=== PATIENT | male | born 1945 | race Caucasian/White ===

== ENCOUNTER → 2021-03-03 | Outpatient (CLI) | payer MEDICARE, BC ==
[~2021-03-03] MED LIST: AMLO10 PO; ASPI81EC PO; OMEP20ER PO; Prilosec Otc20 MG PO; SUCR1 PO
[2021-03-10 12:08] LABS: M-SPIKE, % Not Observed % (Not Observed); PROTEIN,TOTAL,URINE 4.6 mg/dL (Not Estab.)
== END ==
LOC: LAB SHORT 14:42 → LAB 14:42 → LAB FUT 02-04 16:50
PROVIDERS: Internal Medicine
DX: R79.89 Other specified abnormal findings of blood chemistry (principal)
CPT/HCPCS: 81050; 84166

== ENCOUNTER → 2021-06-17 | Outpatient (CLI) | payer MEDICARE ==
[2021-06-17 10:48] LABS: BASOPHILS ABSOLUTE AUTO 0.04 K/mm3 (0.00-0.23); BASOPHILS PERCENT AUTO 1 % (0-2); EOSINOPHILS ABSOLUTE AUTO 0.47 K/mm3 (0.00-0.68); EOSINOPHILS PERCENT AUTO 10 % (0-6); Hematocrit 38.6 % (37.0-53.0); Hemoglobin 12.9 g/dL (13.5-17.5); IMMATURE GRAN ABSOLUTE AUTO 0.01 K/mm3 (0.00-0.10); IMMATURE GRAN PERCENT AUTO 0 % (0-1); LYMPHOCYTES ABSOLUTE AUTO 1.02 K/mm3 (0.84-5.20); LYMPHOCYTES PERCENT AUTO 21 % (21-46); MONOCYTES ABSOLUTE AUTO 0.74 K/mm3 (0.16-1.47); MONOCYTES PERCENT AUTO 15 % (4-13); Mean Corpuscular HGB 31.5 pg (26.0-34.0); Mean Corpuscular HGB Conc 33.4 g/dL (31.5-36.5); Mean Corpuscular Volume 94 fL (80-100); NEUTROPHILS ABSOLUTE AUTO 2.69 K/mm3 (1.96-9.15); NEUTROPHILS PERCENT AUTO 54 % (41-73); Platelet Count 213 K/mm3 (150-400); RDW Coefficient Variation 13.7 % (11.7-14.2); RDW Standard Deviation 46.3 fL (35.1-46.3); White Blood Cell Count 4.97 K/mm3 (4.00-11.30)
[2021-06-17 11:07] LABS: Alanine Aminotransfer (ALT/SGP 20 U/L (12-78); Albumin, Blood 3.1 g/dL (3.4-5.0); Albumin/Globulin Ratio 0.6 (0.8-1.8); Alk Phos 90 U/L (40-126); Anion Gap 10 mmol/L (6-16); Aspartate Aminotrans (AST/SGOT 21 U/L (12-37); Bilirubin, Total 0.6 mg/dL (0.1-1.0); Blood Urea Nitrogen 12 mg/dL (8-24); Bun/Creatinine Ratio 10.8 (12.0-20.0); CO2, Blood 27 mmol/L (21-32); Calcium, Blood 9.4 mg/dL (8.5-10.1); Chloride, Blood 106 mmol/L (98-108); Creatinine, Blood 1.11 mg/dL (0.60-1.20); Globulin, Blood 5.3 g/dL (2.2-4.0); Glomerular Filtration Rate >60 (60-); Glucose, Blood 104 mg/dL (70-99); Potassium, Blood 4.2 mmol/L (3.5-5.5); Sodium, Blood 143 mmol/L (136-145); Thyroid Stimulating Hormone 1.908 uIU/mL (0.360-4.800); Total Protein, Blood 8.4 g/dL (6.4-8.2)
[2021-06-17 11:10] LABS: Troponin I <0.017 ng/mL (0.000-0.040)
== END | disposition home or self-care (01) ==
LOC: LAB SHORT 10:40
PROVIDERS: Physician Assistant
DX: R07.9 Chest pain, unspecified (principal); R53.83 Other fatigue
CPT/HCPCS: 80053; 84443; 84484; 85025; 85379

== ENCOUNTER → 2021-08-18 | Outpatient (CLI) | payer MEDICARE, OTHER ==
[2021-08-19 09:58] LABS: Stool Occult Bld Immuno 1 Negative (NEGATIVE); Stool Occult Bld Immuno 2 Negative (NEGATIVE); Stool Occult Bld Immuno 3 Negative (NEGATIVE)
== END | disposition home or self-care (01) ==
LOC: LAB SHORT 11:26 → EDSTATUS 08-15 18:05 → LAB FUT 08-15 18:05
PROVIDERS: Family Medicine
DX: D50.9 Iron deficiency anemia, unspecified (principal)
CPT/HCPCS: 82274

== ENCOUNTER 2021-10-17 19:46 | Inpatient (IN) | payer MEDICARE, OTHER ==
[~2021-10-17] VITALS: Ht 180.3 cm; Wt 102.0 kg
[2021-10-17 20:33] LABS: BASOPHILS ABSOLUTE AUTO 0.01 K/mm3 (0.00-0.23); BASOPHILS PERCENT AUTO 0 % (0-2); EOSINOPHILS ABSOLUTE AUTO 0.03 K/mm3 (0.00-0.68); EOSINOPHILS PERCENT AUTO 0 % (0-6); Hematocrit 40.2 % (37.0-53.0); Hemoglobin 11.4 g/dL (13.5-17.5); IMMATURE GRAN ABSOLUTE AUTO 0.07 K/mm3 (0.00-0.10); IMMATURE GRAN PERCENT AUTO 1 % (0-1); LYMPHOCYTES ABSOLUTE AUTO 1.09 K/mm3 (0.84-5.20); LYMPHOCYTES PERCENT AUTO 14 % (21-46); MONOCYTES ABSOLUTE AUTO 0.58 K/mm3 (0.16-1.47); MONOCYTES PERCENT AUTO 8 % (4-13); Mean Corpuscular HGB Conc 28.4 g/dL (31.5-36.5); Mean Corpuscular Volume 88 fL (80-100); NEUTROPHILS ABSOLUTE AUTO 5.93 K/mm3 (1.96-9.15); NEUTROPHILS PERCENT AUTO 77 % (41-73); NRBC ABSOLUTE 0.25 K/mm3 (0.00-0.02); NRBC Auto 3.2 /100 WBC (0.0-0.2); Platelet Count 69 K/mm3 (150-400); RDW Coefficient Variation 23.6 % (11.7-14.2); Red Blood Cell Count 4.56 M/mm3 (4.30-5.90); White Blood Cell Count 7.71 K/mm3 (4.00-11.30)
[2021-10-17 20:43] LABS: Alanine Aminotransfer (ALT/SGP 73 U/L (12-78); Albumin, Blood 1.8 g/dL (3.4-5.0); Albumin/Globulin Ratio 0.4 (0.8-1.8); Alk Phos 301 U/L (50-136); Anion Gap 7 mmol/L (6-16); Aspartate Aminotrans (AST/SGOT 184 U/L (12-37); Bilirubin, Total 2.4 mg/dL (0.1-1.0); Blood Urea Nitrogen 25 mg/dL (8-24); Bun/Creatinine Ratio 27.1 (12.0-20.0); CO2, Blood 24 mmol/L (21-32); Chloride, Blood 109 mmol/L (98-108); Creatinine, Blood 0.92 mg/dL (0.60-1.20); Glomerular Filtration Rate >60 (60-); Glucose, Blood 92 mg/dL (70-99); Potassium, Blood 4.3 mmol/L (3.5-5.5); Sodium, Blood 140 mmol/L (136-145); Total Protein, Blood 6.8 g/dL (6.4-8.2)
[2021-10-17] MEDS ORDERED: INLYTA5 MG PO (21:07)
[2021-10-17 23:44] LABS: Influenza A, PCR NEGATIVE (NEGATIVE); Influenza B, PCR NEGATIVE (NEGATIVE); Resp Syncytial Virus, PCR NEGATIVE (NEGATIVE); SARS-Cov-2 (COVID-19) PCR, MMC NEGATIVE (NEGATIVE)
--- NOTE | 2021-10-18 01:49 | NUR ---
ADMIT NOTE 76 YR OLD MALE ADMIT TO FLOOR F/ED W/DX HYPOXIA AND DEHYRATION. NOTE SEVERE EDEMA TO BLE 4+. CURRENTLY ON LASIX AND CHEMO DRUGS; SEE MAR FOR DETAILS. A/OX4. ORIENTED TO CALL LIGHT. CALL LIGHT IN REACH. OCCASIONAL COUGH NOTED.
--- NOTE | 2021-10-18 05:14 | NUR ---
REPAIRER CONTROLLER TESTER SUMMARY WAS ADMITTED EARLIER IN THE SHIFT WITH DX HYPOXIA AND DEHYDRATION. BLE EDEMA 4+. ALBUMIN AND LASIX ADMINISTERED PER MD ORDERS - SEE MAR FOR DETAILS. HAS BEEN UP TO THE COMMODE SEVERAL TIMES TO VOID. NOTE DECREASED EDEMA IN BLE. ORIENTED X 4. CALL LIGHT IN REACH. VOICED FEELING BETTER, BUT STIL ANNOYED WITH THE MULTIPLE TRIPS TO THE COMMODE. WATCHING TV AT THIS TIME.
[2021-10-18 06:15] LABS: BASOPHILS ABSOLUTE AUTO 0.01 K/mm3 (0.00-0.23); BASOPHILS PERCENT AUTO 0 % (0-2); EOSINOPHILS ABSOLUTE AUTO 0.01 K/mm3 (0.00-0.68); EOSINOPHILS PERCENT AUTO 0 % (0-6); Hematocrit 36.7 % (37.0-53.0); Hemoglobin 10.6 g/dL (13.5-17.5); IMMATURE GRAN ABSOLUTE AUTO 0.06 K/mm3 (0.00-0.10); IMMATURE GRAN PERCENT AUTO 1 % (0-1); LYMPHOCYTES ABSOLUTE AUTO 0.92 K/mm3 (0.84-5.20); LYMPHOCYTES PERCENT AUTO 14 % (21-46); MONOCYTES ABSOLUTE AUTO 0.61 K/mm3 (0.16-1.47); MONOCYTES PERCENT AUTO 9 % (4-13); Mean Corpuscular HGB 25.1 pg (26.0-34.0); Mean Corpuscular HGB Conc 28.9 g/dL (31.5-36.5); Mean Corpuscular Volume 87 fL (80-100); Mean Platelet Volume 11.2 fL (9.1-12.4); NEUTROPHILS ABSOLUTE AUTO 5.21 K/mm3 (1.96-9.15); NEUTROPHILS PERCENT AUTO 77 % (41-73); NRBC ABSOLUTE 0.16 K/mm3 (0.00-0.02); NRBC Auto 2.3 /100 WBC (0.0-0.2); Platelet Count 52 K/mm3 (150-400); RDW Coefficient Variation 23.3 % (11.7-14.2); RDW Standard Deviation 71.4 fL (35.1-46.3); Red Blood Cell Count 4.23 M/mm3 (4.30-5.90); White Blood Cell Count 6.82 K/mm3 (4.00-11.30)
[2021-10-18 06:59] LABS: Alanine Aminotransfer (ALT/SGP 67 U/L (12-78); Albumin/Globulin Ratio 0.5 (0.8-1.8); Alk Phos 281 U/L (50-136); Anion Gap 8 mmol/L (6-16); Aspartate Aminotrans (AST/SGOT 208 U/L (12-37); Bilirubin, Total 3.2 mg/dL (0.1-1.0); Blood Urea Nitrogen 26 mg/dL (8-24); CO2, Blood 25 mmol/L (21-32); Calcium, Blood 8.6 mg/dL (8.5-10.1); Chloride, Blood 107 mmol/L (98-108); Creatinine, Blood 0.96 mg/dL (0.60-1.20); Globulin, Blood 4.4 g/dL (2.2-4.0); Glomerular Filtration Rate >60 (60-); Glucose, Blood 88 mg/dL (70-99); Potassium, Blood 3.6 mmol/L (3.5-5.5); Sodium, Blood 140 mmol/L (136-145); Total Protein, Blood 6.4 g/dL (6.4-8.2)
[2021-10-18 08:01] LABS: Source, Urine Clean Catch
[2021-10-18 08:28] LABS: Appearance, Urine Clear (Clear); Bilirubin, Urine Neg (Neg); Blood, Urine Neg (Neg); Color, Urine Yellow (P-Yellow); Glucose Qualitative, Urine Neg (Neg); Ketones, Urine Neg (Neg); Leukocyte Esterase, Urine Neg (Neg); Nitrite, Urine Neg (Neg); Protein, Urine Neg (Neg); Urobilinogen, Urine NORM (Normal)
--- NOTE | 2021-10-19 03:46 | NUR ---
SNOUT PULLER SUMMARY PT A/OX4. HX OF RENAL CANCER, HTN, AND GERD. PT ADMITT W/HYPOXIA AND EDEMA. PT IS RESTING IN BED W/LEGS ELEVATED. 1 PERSON ASSIST TO BEDSIDE COMMODE. PT URINATED FREQ THROUGH THE NIGHT. PT IS CONTINENT BUT HAS URINARY URGENCY; PT VOIDING BEFORE GETTING TO THE COMMODE. ATTENDS AND LINER IN PLACE. PT IS RECEIVING LASIX F/DIURESIS. EDEMA IN BLE IS IMPROVING; CURRENTLY 2+. PT IS ON TELE; MULTIFOCAL TACHY W/PVC, 143BPM. HEART SOUNDS ARE IRREGULAR. PT EXPERIENCING TACHY EPISODES OF 140-170'S WHEN HE IS OUT OF BED. PT RESTING COMFORTABLY IN BED W/CALL LIGHT IN REACH.
[2021-10-19 04:38] LABS: Hematocrit 38.3 % (37.0-53.0); Hemoglobin 11.2 g/dL (13.5-17.5); Mean Corpuscular HGB Conc 29.2 g/dL (31.5-36.5); Mean Corpuscular Volume 86 fL (80-100); NRBC ABSOLUTE 0.22 K/mm3 (0.00-0.02); NRBC Auto 3.7 /100 WBC (0.0-0.2); RDW Coefficient Variation 23.6 % (11.7-14.2); RDW Standard Deviation 70.2 fL (35.1-46.3); Red Blood Cell Count 4.48 M/mm3 (4.30-5.90); White Blood Cell Count 5.88 K/mm3 (4.00-11.30)
[2021-10-19 04:49] LABS: Platelet Count 41 K/mm3 (150-400)
[2021-10-19 05:13] LABS: Anion Gap 8 mmol/L (6-16); Blood Urea Nitrogen 29 mg/dL (8-24); CO2, Blood 26 mmol/L (21-32); Calcium, Blood 8.8 mg/dL (8.5-10.1); Chloride, Blood 105 mmol/L (98-108); Glomerular Filtration Rate >60 (60-); Glucose, Blood 100 mg/dL (70-99); Potassium, Blood 3.8 mmol/L (3.5-5.5); Sodium, Blood 139 mmol/L (136-145)
--- NOTE | 2021-10-19 14:37 | NUR ---
SHIFT SUMMARY PT AWAKE DURING SHIFT REPORT. PLEASANT AND CO-OP WITH CARE. PER REPORT, PT ON 6L O2 VIA NC. DR WATKINS HERE TO SEE PT AND REQUESTED O2 BE TITRATED DOWN IF POSSIBLE. O2 DECREASED SLOWLY AND MONITORED. PT ABLE TO BE PLACED ON RA WITH BIOX MAINTAINED AT 99%. PT HAD DENIED SOB. TELE MX CALLED TO REPORT HR INCREASING TO 130'S WITH ANY ACTIVITY. PT THEN REPORTED HX OF A-FIB. DR WATKINS UPDATED ON PT STATUS AND HR. NEW ORDERS PLACED. PCU TELE MX LATER REPORTED IMPROVEMENT IN PT'S HR. CONTROLED RATE FOR THE LAST SEVERAL HOURS; 90'S TO 115. FAMILY TO TO VISIT THIS AFTERNOON. PT INDEPENDENT TO BSC NEEDED AND BACK TO BED OR CHAIR. DENIED FURTHER NEEDS AT THIS TIME. CALL LT IN REACH.
[2021-10-19] MEDS ORDERED: DILT180 PO (17:37)
[2021-10-19] MEDS ORDERED: METO25ER (17:39)
[2021-10-19] MEDS ORDERED: TORSE20 PO (17:40)
[2021-10-19] MEDS ORDERED: POTCHL20ER PO (17:40)
--- NOTE | 2021-10-19 18:41 | NUR ---
DR WATKINS RETURNED TO CK ON PT AND O2 LEVEL. PT REMAINED ON RA WITH BIOX AT 97%. PT WANTING TO GO HOME. D/C ORDERS PLACED. MEDS FAXED TO [facility] PER PT REQUEST. D/C INSTRUCTIONS REVIEWED WITH PT AND PT'S BROTHER; VERBALIZED UNDERSTANDING. PT'S BROTHER ASSISTED PT IN GETTING DRESSED. PT ASSISTED OUT TO BROTHERS TRUCK VIA W/C.
== END 2021-10-19 17:54 | disposition home or self-care (01) | DRG 205 ==
LOC: ER 19:46 → MEDS 10-18 01:14
PROVIDERS: Emergency Medicine; Internal Medicine; ADMIT Internal Medicine
DX: J70.2 Acute drug-induced interstitial lung disorders (principal); I50.31 Acute diastolic (congestive) heart failure; J96.01 Acute respiratory failure with hypoxia; C64.9 Malignant neoplasm of unspecified kidney, except renal pelvis; Z20.822 Contact with and (suspected) exposure to COVID-19; I48.91 Unspecified atrial fibrillation; R60.1 Generalized edema; D69.59 Other secondary thrombocytopenia; E86.0 Dehydration; T45.1X5A Adverse effect of antineoplastic and immunosuppressive drugs, initial encounter; E80.6 Other disorders of bilirubin metabolism; S30.1XXA Contusion of abdominal wall, initial encounter; R21 Rash and other nonspecific skin eruption; K21.9 Gastro-esophageal reflux disease without esophagitis; E88.09 Other disorders of plasma-protein metabolism, not elsewhere classified; I10 Essential (primary) hypertension; Z79.899 Other long term (current) drug therapy; W19.XXXA Unspecified fall, initial encounter
CPT/HCPCS: 0241U; 36415; 71045; 80048; 80053; 81003; 83880; 84436; 84443; 85025; 85027; 93005; 93010; 94760; 96361; 96374; 99285-25; A9270; J1940; J7030; P9046

== ENCOUNTER 2021-12-20 06:20 | Observation (INO) | payer MEDICARE, OTHER ==
[~2021-12-20] VITALS: Ht 172.7 cm; Wt 60.3 kg
[~2021-12-20 06:20] MED LIST changes: +AMLODIPINE BESY10 MG PO; +DILT180 PO; +ELIQUIS5 M3 PO; +FUROSEMIDE20 MG PO; +INLYTA5 MG PO; +METO25ER; +METOPROLOL SUCC25 MG PO; +POTCHL20ER PO; +Prednisone10 MG PO; +TORSE20 PO
[2021-12-20 06:55] LABS: Hematocrit 30.4 % (37.0-53.0); Hemoglobin 8.4 g/dL (13.5-17.5); Mean Corpuscular HGB Conc 27.6 g/dL (31.5-36.5); Mean Corpuscular Volume 94 fL (80-100); NRBC ABSOLUTE 3.14 K/mm3 (0.00-0.02); NRBC Auto 17.1 /100 WBC (0.0-0.2); Platelet Count 110 K/mm3 (150-400); RDW Coefficient Variation 24.4 % (11.7-14.2); RDW Standard Deviation 84.1 fL (35.1-46.3); Red Blood Cell Count 3.23 M/mm3 (4.30-5.90); White Blood Cell Count 18.39 K/mm3 (4.00-11.30)
[2021-12-20 07:03] LABS: Mean Platelet Volume 10.2 fL (9.1-12.4)
[2021-12-20 07:16] LABS: BAND PERCENT MAN 10 % (0-8); BASOPHILS PERCENT MAN 0 % (0-2); EOSINOPHILS PERCENT MAN 0 % (0-6); LYMPHOCYTES ABSOLUTE MAN 1.47 K/mm3 (0.84-5.20); LYMPHOCYTES PERCENT MAN 8 % (21-46); METAMYELOCYTE ABSOLUTE MAN 0.36 K/mm3 (0.00-0.00); METAMYELOCYTE PERCENT MAN 2 % (0-0); MONOCYTES ABSOLUTE MAN 0.73 K/mm3 (0.16-1.47); MONOCYTES PERCENT MAN 4 % (4-13); NEUTROPHILS ABSOLUTE MAN 15.81 K/mm3 (1.96-9.15); SEG NEUTROPHILS PERCENT MAN 76 % (41-73); TOTAL CELLS COUNTED 100
[2021-12-20 07:23] LABS: Albumin, Blood 1.6 g/dL (3.4-5.0); Albumin/Globulin Ratio 0.4 (0.8-1.8); Bilirubin, Total 2.9 mg/dL (0.1-1.0); Bun/Creatinine Ratio 42.5 (12.0-20.0); Calcium, Blood 8.3 mg/dL (8.5-10.1); Creatinine, Blood 1.86 mg/dL (0.60-1.20); Globulin, Blood 4.4 g/dL (2.2-4.0); Potassium, Blood 4.9 mmol/L (3.5-5.5)
[2021-12-20 08:11] LABS: Source, Urine Clean Catch
[2021-12-20 08:20] LABS: Bilirubin, Urine Neg (Neg); Blood, Urine Neg (Neg); Glucose Qualitative, Urine Neg (Neg); Ketones, Urine Neg (Neg); Leukocyte Esterase, Urine Neg (Neg); Nitrite, Urine Neg (Neg); Protein, Urine 1+ (Neg); Specific Gravity, Urine 1.015 (1.003-1.022); Urobilinogen, Urine 1+ (Normal)
[2021-12-20 08:22] LABS: Appearance, Urine Clear (Clear); Color, Urine Yellow (P-Yellow)
--- NOTE | 2021-12-20 12:50 | NUR ---
COMFORT CARE PATIENT ADMITTED FROM ER ON COMFORT CARE. PATIENT CHANGED ASSITED WITH URINAL AND CLEANED UP. SKIN TEAR ON LEFT UPPER ARM, BANDAGE PLACED. BRUISING IN VARIOUS STAGES NOTED. PRESSURE SORE ON COCCXY NOTED AND MEPILEX DRESSING PLACED. PATIENT STATED HES HAD IT FOR AWHILE. ON ARRIVAL PATIENT C/O PAIN. MEDICATED PARTIAL DOSE FIRST TIME GIVING PAIN MEDICATION. NO RELIEF. GAVE REMAINDER OF DOSE. FAMILY AT BEDSIDE. FLUIDS AND LUNCH OFFERED. LEFT PATIENT AND FAMILY TO REST.
[2021-12-20] MEDS ORDERED: ACET325UDC PO (13:20)
[2021-12-20] MEDS ORDERED: ACET120S PR (13:23)
[2021-12-20] MEDS ORDERED: MORP20L PO (13:25)
[2021-12-20] MEDS ORDERED: ONDA4ODT MM (13:25)
[2021-12-20] MEDS ORDERED: PROC25S PR (13:29)
--- NOTE | 2021-12-20 14:31 | NUR ---
COMFORT CARE PATIENT REPOSITIONED ON SIDE AND IS RESTING. FAMILY WENT HOME TO AWAIT DELIVERY OF EQUIPMENT FOR PATIENT TO COME HOME. MEDICATED FOR PAIN. FLUIDS OFFERED. IV D/C'D. PLAN FOR PATIENT TO GO HOME ON HOSPICE TODAY AT 1600.
--- NOTE | 2021-12-20 14:43 | NUR ---
Ongoing work towards discharge with [facility]: Pt will be transported home at 1600 today, family is at home awaiting equipment drop off. Pt is resting comfortably at this time.
--- NOTE | 2021-12-20 17:51 | NUR ---
DISCHARGE SUMMARY PATIENT DISCHARGED HOME ON HOSPICE. DISCHARGE PAPERWORK REVIEWED WITH PATIENT. HOSPICE COMPANY TO TAKE CARE OF MEDICATIONS. IV D/C'D. PATIENT TAKEN VIA STRETCHER TRANSPORTATION. ALL BELONGINGS HAD BEEN PREVIOUSLY TAKEN HOME WITH FAMILY.
--- NOTE | 2021-12-20 18:12 | NUR ---
Received a call from ED charge Kami, she reports the patient has been taken home, but no equipment or medication has been delivered from [facility] as of yet. The pt is returning to the ED, awaiting word that medication and equipment are delivered, then the patient to return home.
== END 2021-12-20 16:24 | disposition hospice, home (50) ==
LOC: ER 06:20 → MEDS 06:21
PROVIDERS: Emergency Medicine; ADMIT Internal Medicine
DX: C64.9 Malignant neoplasm of unspecified kidney, except renal pelvis (principal); C78.7 Secondary malignant neoplasm of liver and intrahepatic bile duct; C78.00 Secondary malignant neoplasm of unspecified lung; E43 Unspecified severe protein-calorie malnutrition; I47.1 Supraventricular tachycardia; J96.91 Respiratory failure, unspecified with hypoxia; I11.0 Hypertensive heart disease with heart failure; I50.30 Unspecified diastolic (congestive) heart failure; K21.9 Gastro-esophageal reflux disease without esophagitis; Z66 Do not resuscitate; Z51.5 Encounter for palliative care; Z99.81 Dependence on supplemental oxygen; Z68.20 Body mass index [BMI] 20.0-20.9, adult
CPT/HCPCS: 71045; 80053; 83690; 83735; 83880; 84145; 84484; 85025; 93005; 93010; 96374; 99283-25; 99285-25; A9270; G0378; J0456; J0696; J2270; J7030; J7050

== ENCOUNTER 2021-12-20 17:51 | Emergency (ER) | payer MEDICARE, OTHER ==
[~2021-12-20] VITALS: Ht 175.3 cm; Wt 54.4 kg
[~2021-12-20 17:51] MED LIST changes: +ACET120S PR; +ACET325UDC PO; +MORP20L PO; +ONDA4ODT MM; +PROC25S PR
== END 2021-12-20 22:24 | disposition home or self-care (01) ==
LOC: ER 17:51
DX: Z51.5 Encounter for palliative care (principal); C64.9 Malignant neoplasm of unspecified kidney, except renal pelvis; C78.02 Secondary malignant neoplasm of left lung; C78.01 Secondary malignant neoplasm of right lung; C78.7 Secondary malignant neoplasm of liver and intrahepatic bile duct; I11.0 Hypertensive heart disease with heart failure; I50.30 Unspecified diastolic (congestive) heart failure; Z99.81 Dependence on supplemental oxygen
CPT/HCPCS: J2270